=== PATIENT | female | born 1995 | race African-American/Black ===

== ENCOUNTER 2018-01-11 06:10 | Inpatient (IN) ==
[2018-01-11] MEDS ORDERED: MEPERIDINE 50 MG/1 ML VIAL IV PRN (06:25)
[2018-01-11] MEDS ORDERED: ONDANSETRON 4 MG/2 ML VIAL IV PRN ×2 (06:25→14:47)
[2018-01-11] MEDS ORDERED: BUTORPHANOL 2 MG/ML VIAL IV PRN (06:25)
[2018-01-11] MEDS ORDERED: CITRIC ACID/SODIUM CITRATE 30 ML UDCUP PO ONE (06:27)
[2018-01-11] MEDS ORDERED: FAMOTIDINE 20 MG/2 ML VIAL IV ONE (06:27)
[2018-01-11] MEDS ORDERED: ePHEDrine 50 MG/ML AMP IV PRN (06:27)
[2018-01-11] MEDS ORDERED: diphenhydrAMINE 50 MG/1 ML VIAL IV PRN (06:27)
[2018-01-11] MEDS ORDERED: NALOXONE 0.4 MG/ML VIAL IV PRN (06:27)
[2018-01-11] MEDS ORDERED: PROMETHAZINE 25 MG/1 ML VIAL IM ONE (06:27)
[2018-01-11] MEDS ORDERED: LACTATED RINGERS 1,000 ML IV ONE (06:27)
[2018-01-11] MEDS ORDERED: hydrOXYzine HCL 25 MG/1 ML VIAL IM PRN (06:27)
[2018-01-11] MEDS ORDERED: fentaNYL 2 MCG/ROPIV 0.2% EPID 100 ML EPIDURAL SCH (06:30)
[2018-01-11] MEDS ORDERED: OXYTOCIN/LR 20 UNIT/1,000 ML BAG IV SCH (06:30)
[2018-01-11 06:47] LABS: Basophils % 0.2 % (0.0-0.8); Eosinophils # 0.1 10*3/uL (0.0-0.87); Eosinophils % 0.7 % (0.00-10.9); Hematocrit 32.4 VOL% (35.7-47.0); Hemoglobin 11.1 GM/DL (12.0-16.0); Immature Granulocytes % 1.4 %; Immature Granulocytes Absolute 0.16 #; Lymphocytes # 2.2 10*3/uL (1.4-4.0); Lymphocytes % 19.5 % (21.3-54.2); Mean Corpuscular HGB Conc 34.3 GM/DL (32-36); Mean Corpuscular Hemoglobin 29 PG (27-34); Mean Corpuscular Volume 84.2 FL (87-102); Mean Platelet Volume 10.8 FL (9.6-12.0); Monocytes # 0.8 10*3/uL (0.11-0.8); Monocytes % 7.2 % (1.7-12.7); Neutrophils # 8.1 10*3/uL (1.4-7.4); Platelet Count 199 T/CUMM (130-400); Red Blood Count 3.85 MC/CUMM (3.8-5.5); Red Cell Distribution Width 14.5 % (9.3-17.3); White Blood Count 11.5 T/CUMM (4-12)
[2018-01-11 07:18] LABS: Albumin 2.8 G/DL (3.4-5.0); Bilirubin,Total 0.6 MG/DL (0.2-1.0); Calcium 8.3 MG/DL (8.5-10.1); Osmolality,Calculated 278.1 MOS/KG (273-304); Potassium 3.6 MMOL/L (3.5-5.1); Total Protein 6.7 G/DL (6.4-8.3)
[2018-01-11] MEDS: LACTATED RINGERS 1,000 ML IV SCH ×3 (09:15→22:43)
[2018-01-11 11:54] LABS: Apearance,Urine CLEAR (Clear); Bilirubin,Urine Negative (Negative); Blood, Urine Small mg/dL (Negative); Glucose,Urine (UA) Negative (Negative); Ketones,Urine 5 mg/dL (Negative); Nitrite,Urine Negative (Negative); Protein,Urine Negative; Urine Color Colorless (Yellow); Urine Specific Gravity 1.003 (1.001-1.035); Urine Urobilinogen < 2.0 EU/DL (0.2-1.0); WBC,Urine <1 /HPF (0-6)
[2018-01-11] MEDS ORDERED: LIDOCAINE 1% 50 ML VIAL ONE ×2 (14:06→14:15)
[2018-01-11] MEDS ORDERED: miSOPROStol 200 MCG TABLET ONE ×2 (14:07→14:15)
[2018-01-11] MEDS ORDERED: BUTORPHANOL 1 MG/ML VIAL ONE ×2 (14:08→14:15)
[2018-01-11] MEDS ORDERED: METHYLERGONOVINE 0.2 MG/1 ML AMP ONE ×2 (14:11→14:15)
[2018-01-11] MEDS ORDERED: DIPH/TET/ACEL PERT BOOSTER VACCINE 0.5 ML VIAL IM ONE (14:47)
[2018-01-11] MEDS ORDERED: BENZOCAINE 20%/MENTHOL 0.5% SPRAY 56 GM CAN TOP PRN (14:47)
[2018-01-11] MEDS ORDERED: RHO(D) IMMUNE GLOBULIN 300 MCG SYRINGE IM ONE (14:47)
[2018-01-11] MEDS ORDERED: ACETAMINOPHEN 325 MG TABLET PO PRN (14:47)
[2018-01-11] MEDS ORDERED: HYDROCORTISONE 2.5% RECTAL CREAM 30 GM TUBE TOP PRN (14:47)
[2018-01-11] MEDS ORDERED: oxyCODONE/ACETAMINOPHEN 5-325 MG TABLET PO PRN ×2 (14:47)
[2018-01-11] MEDS ORDERED: MEASLES/MUMPS/RUBELLA VACCINE 0.5 ML VIAL SUBCUT ONE (14:47)
[2018-01-11] MEDS ORDERED: BISACODYL 10 MG SUPP RECTAL PRN (14:47)
[2018-01-11] MEDS ORDERED: LANOLIN 50% CREAM 0.3 OZ TUBE TOP PRN (14:47)
[2018-01-11] MEDS ORDERED: WITCH HAZEL PADS 100/JAR TOP PRN (14:47)
[2018-01-11] MEDS ORDERED: OXYTOCIN/LR 20 UNIT/1,000 ML BAG IV ONE (14:47)
[2018-01-11] MEDS: IBUPROFEN 800 MG TABLET PO PRN (17:17)
[2018-01-11] MEDS: DOCUSATE SODIUM 100 MG CAPSULE PO SCH (21:21)
[2018-01-12] MEDS: IBUPROFEN 800 MG TABLET PO PRN ×2 (04:59→19:50)
[2018-01-12 05:06] LABS: Basophils % 0.2 % (0.0-0.8); Eosinophils # 0.1 10*3/uL (0.0-0.87); Eosinophils % 0.5 % (0.00-10.9); Hematocrit 31.2 VOL% (35.7-47.0); Hemoglobin 10.9 GM/DL (12.0-16.0); Immature Granulocytes % 1.1 %; Immature Granulocytes Absolute 0.17 #; Lymphocytes # 2.1 10*3/uL (1.4-4.0); Lymphocytes % 13.3 % (21.3-54.2); Mean Corpuscular HGB Conc 34.9 GM/DL (32-36); Mean Corpuscular Hemoglobin 29 PG (27-34); Mean Corpuscular Volume 82.5 FL (87-102); Mean Platelet Volume 10.9 FL (9.6-12.0); Monocytes # 1.1 10*3/uL (0.11-0.8); Monocytes % 7.2 % (1.7-12.7); Neutrophils % 77.7 % (38.7-73.9); Platelet Count 175 T/CUMM (130-400); Red Blood Count 3.78 MC/CUMM (3.8-5.5); Red Cell Distribution Width 14.6 % (9.3-17.3); White Blood Count 15.5 T/CUMM (4-12)
[2018-01-12] MEDS: LACTATED RINGERS 1,000 ML IV SCH (06:42)
[2018-01-12] MEDS: DOCUSATE SODIUM 100 MG CAPSULE PO SCH ×3 (08:57→21:07)
[2018-01-13 08:32] VITALS: BP 127/84
[2018-01-13] MEDS: DOCUSATE SODIUM 100 MG CAPSULE PO SCH (09:41)
== END 2018-01-13 12:20 | disposition home or self-care (01) | DRG 560 ==
LOC: N.LDOUT 06:10 → N.LD 06:16 → N.OB 17:00
PROVIDERS: ADMIT Obstetrics & Gynecology; ATTEND Obstetrics & Gynecology